=== PATIENT | male | born 1995 | race Caucasian/White ===

== ENCOUNTER 2019-03-17 14:42 | Emergency (ER) | payer OTHER ==
--- NOTE | 2019-03-17 15:01 | PDOC ---
Rapid Medical Evaluation Chief Complaint: Pain, Acute Time Seen by Provider: 03/17/19 14:59 Medical Evaluation: Allergies Allergy/AdvReac Type Severity Reaction Status Date / Time No Known Allergies Allergy Verified 04/16/15 17:31 03/17/19 15:00 I have performed a brief in-person evaluation of this patient. The patient presents with a chief complaint of:twisted / inversion injury right ankle yesterday playing soccer Pertinent physical exam findings: swollen / tender/ I have ordered the following: right ankle xray The patient will proceed to the ED for further evaluation. Discharge Disposition - Diagnosis Ankle sprain - Referrals - Patient Instructions - Post Discharge Activity
[2019-03-17 15:02] VITALS: BP 164/89; PULSE 94; TEMP 98; BMI 34.9
--- NOTE | 2019-03-17 16:02 | PDOC ---
History of Present Illness - General Chief Complaint: Pain, Acute Stated Complaint: RT ANKLE TWIST Time Seen by Provider: 03/17/19 14:59 - History of Present Illness Initial Comments: 03/17/19 16:00 23-year-old male fully immunized without comorbidities presents for evaluation of right ankle pain. He describes an inversion type injury while playing soccer yesterday. Past History - Past Medical History Allergies/Adverse Reactions: Allergies Allergy/AdvReac Type Severity Reaction Status Date / Time No Known Allergies Allergy Verified 03/17/19 15:27 Home Medications: Ambulatory Orders Ibuprofen [Motrin -] 600 mg PO TID #21 tablet 04/17/15 COPD: No - Immunization History Immunization Up to Date: Yes - Psycho Social/Smoking Cessation Hx Smoking History: Never smoked Have you smoked in the past 12 months: No Information on smoking cessation initiated: No Hx Alcohol Use: No Drug/Substance Use Hx: No Substance Use Type: None Review of Systems - Review of Systems Musculoskeletal: Yes: Joint Pain *Physical Exam - Vital Signs Last Vital Signs Temp Pulse Resp BP Pulse Ox 98.0 F 94 H 18 164/89 100 03/17/19 15:00 03/17/19 15:00 03/17/19 15:00 03/17/19 15:00 03/17/19 15:00 - Physical Exam Comments: 03/17/19 16:00 Right ankle skin color and temperature normal range of motion is slightly limited. There is no tenderness about the proximal fibula or along its distal course. No tenderness about the medial lateral malleolus base of the fifth metatarsal or navicular. Mild tenderness over the ATFL without instability no gross sensorimotor deficits neurovascular intact. Medical Decision Making - Medical Decision Making 03/17/19 16:00 X-rays of the right ankle show no evidence of fracture trauma or destructive process. Right ankle sprain weight-bear as tolerated with Aircast crutches follow-up with Ortho Discharge - Discharge Information Problems reviewed: Yes Clinical Impression/Diagnosis: Ankle sprain Condition: Stable Disposition: HOME - Admission No - Follow up/Referral Referrals: Yaw Washington MD [Primary Care Provider] - Andrew Walls DO [Staff Physician] - - Patient Discharge Instructions Patient Printed Discharge Instructions: Ankle Sprain, DI for Ankle Sprain Additional Instructions: You may weight-bear as tolerated with use of crutches in the Aircast Tylenol and Motrin as directed for pain. Return to the emergency room for worsening symptoms. And without fail please follow-up with orthopedic surgery in 1 to 2 days for further evaluation and treatment options. - Post Discharge Activity Work/Back to School Note: Back to Work
== END 2019-03-17 16:17 | disposition home or self-care (01) ==
LOC: JERFT 14:42
PROC: 2W3QX1Z Immobilization of Right Lower Leg using Splint (ICD-10-PCS; principal; 2019-03-17)
DX: S93.401A Sprain of unspecified ligament of right ankle, initial encounter (principal); X50.1XXA Overexertion from prolonged static or awkward postures, initial encounter; Y93.66 Activity, soccer; Y92.322 Soccer field as the place of occurrence of the external cause; Y99.8 Other external cause status
CPT/HCPCS: 29515; 73610-TC-RT-FY; 99282-25